=== PATIENT | male | born 1980 | race Hispanic/Latino ===

== ENCOUNTER 2018-09-16 17:21 | Emergency (ER) | payer SELFPAY ==
[2018-09-16] MEDS ORDERED: HYDROCODONE/APAP 7.5/325 MG TAB ONE (18:08)
--- NOTE | 2018-09-16 18:35 | RAD REPORT ---
EXAM DESCRIPTION: RAD - Ankle Right 3 View - 09/16/2018 6:28 pm CLINICAL HISTORY: PAIN Fall, ankle pain COMPARISON: No comparisons FINDINGS: Spiral fracture is seen involving the distal tibial metaphysis. Oblique fracture of the di stal fibula also present. Moderate soft tissue swelling is evident.
--- NOTE | 2018-09-16 19:26 | ER ---
Nurse's Notes [facility] Name: Curtis Singh Age: 37 yrs Sex: Male : 1980 Arrival Date: 09/16/2018 Time: 17:27 Bed 30 Private MD: None, None Diagnosis: Oblique fracture of shaft of tibia-distal;Nondisplaced fracture of lateral malleolus of right fibula Presentation: 09/16 17:42 Presenting complaint: Patient states: "I stepped wrong and fell yesterday and hurt my aa5 right foot". Pt c/o right foot and right ankle pain. Transition of care: patient was not received from another setting of care. Onset of symptoms was August 2018. Risk Assessment: Do you want to hurt yourself or someone else? Patient reports no desire to harm self or others. Initial Sepsis Screen: Does the patient meet any 2 criteria? No. Patient's initial sepsis screen is negative. Does the patient have a suspected source of infection? No. Patient's initial sepsis screen is negative. Care prior to arrival: None. 17:42 Method Of Arrival: Wheelchair aa5 17:42 Acuity: SHARONA 4 aa5 Historical: - Allergies: 17:43 No Known Allergies; aa5 - PMHx: 17:43 None; aa5 - PSHx: 17:43 None; aa5 - Immunization history:: Flu vaccine is not up to date. - Social history:: Smoking status: Patient/guardian denies using tobacco. - Ebola Screening: : No symptoms or risks identified at this time. Screenin:59 Abuse screen: Denies threats or abuse. Denies injuries from another. Nutritional rv screening: No deficits noted. Tuberculosis screening: No symptoms or risk factors identified. Fall Risk None identified. Assessment: 17:59 General: Appears in no apparent distress. uncomfortable, Behavior is calm, cooperative. rv Pain: Complains of pain in right foot. Neuro: Level of Consciousness is awake, alert, obeys commands, Oriented to person, place, time, situation. Cardiovascular: Capillary refill < 3 seconds. Respiratory: Airway is patent. GI: No signs and/or symptoms were reported involving the gastrointestinal system. GI: No signs and/or symptoms were reported involving the gastrointestinal system. : No signs and/or symptoms were reported regarding the genitourinary system. EENT: No signs and/or symptoms were reported regarding the EENT system. Derm: Bruising that is dark purple. Musculoskeletal: Swelling present in right foot. 19:45 Reassessment: patient complained of feeling weak and ill after the shot of Fentanyl. rv referred to Danisha EDWARDS. Vital Signs: 17:43 BP 137 / 94; Pulse 100; Resp 16 S; Temp 99.0(TE); Pulse Ox 99% on R/A; Weight 88.45 kg aa5 (R); Height 5 ft. 10 in. (177.80 cm) (R); Pain 10/10; 20:00 BP 161 / 94; Pulse 110; Resp 21; Pulse Ox 98% on R/A; rv 20:15 BP 136 / 90; Pulse 94; Resp 19; Pulse Ox 96% on R/A; rv 20:30 BP 143 / 89; Pulse 81; Resp 18; Pulse Ox 96% on R/A; rv 21:47 BP 148 / 97; Pulse 83; Resp 15 S; Pulse Ox 100% on R/A; rv 17:43 Body Mass Index 27.98 (88.45 kg, 177.80 cm) aa5 ED Course: 17:27 Patient arrived in ED. mr 17:27 None, None is Private Physician. mr 17:42 Triage completed. aa5 17:42 Arm band placed on. aa5 17:48 [facility] Friend F[facility]-C is [facility]. snw 17:48 Ervin Haji MD is Attending Physician. snw 18:00 Patient has correct armband on for positive identification. Bed in low position. Call rv light in reach. Side rails up X 1. Pulse ox on. NIBP on. 18:29 Ankle Right 3 View XRAY In Process Unspecified. EDMS 19:19 Orthoglass splint: Posterior long leg splint applied on right leg. stirrup splint lt1 applied on right leg. 19:23 Mane Che MD is Referral Physician. snw 20:00 Inserted saline lock: 20 gauge in right antecubital area, using aseptic technique. rv 21:47 No provider procedures requiring assistance completed. IV discontinued, bleeding rv controlled, No redness/swelling at site. Pressure dressing applied. Administered Medications: 17:58 Drug: [place] (7.5 mg-325 mg) 1 tabs Route: PO; rv 19:45 Follow up: Response: No adverse reaction; Pain is decreased rv 19:20 Drug: fentaNYL (PF) 50 mcg Route: IM; Site: right deltoid; rv 19:45 Follow up: Response: Pain is decreased rv 19:30 Drug: Zofran 4 mg Route: PO; rv 20:23 Follow up: Response: Nausea unchanged rv 20:00 Drug: NS 0.9% 1000 ml Route: IV; Rate: 1 bolus; Site: right antecubital; rv 20:00 Drug: Zofran 4 mg Route: IVP; Site: right antecubital; rv 20:38 Follow up: Response: Nausea is decreased rv Outcome: 19:25 Discharge ordered by . snw 21:47 Discharged to home via wheelchair, with crutches. rv 21:47 Condition: good 21:47 Discharge instructions given to patient, family, Instructed on discharge instructions, follow up and referral plans. medication usage, Demonstrated understanding of instructions, follow-up care, medications, Prescriptions given X 2. 21:48 Patient left the ED. rv Signatures: Dispatcher [employer] EDMS Danisha Friend, HR ANALYST-C HR ANALYST-Csnw ShawEmilee mr Ortiz, Shelly, RN RN aa5 Julio César Choudhury RN RN Ada Kennedy 1
[2018-09-16] MEDS ORDERED: FENTANYL CITR 100 MCG/2 ML ONE (19:27)
--- NOTE | 2018-09-16 19:27 | EDPHYS ---
Physician Documentation [facility] Name: Curtis Singh Age: 37 yrs Sex: Male : 1980 Arrival Date: 09/16/2018 Time: 17:27 Bed 30 Private MD: None, None ED Physician Ervin Haji HPI: 09/16 18:07 This 37 yrs old Male presents to ER via Wheelchair with complaints of Foot snw Injury. 18:07 The patient presents with decreased range of motion, an injury, pain, that is acute. snw The complaints affect the right ankle. Context: The problem was sustained at home, resulted from a mis-step, twisting of the extremity, the patient is not able to ambulate, Problem is a result from a previous injury: No. Onset: The symptoms/episode began/occurred suddenly, last night. Associated signs and symptoms: Pertinent positives: swelling. Severity of symptoms: At their worst the symptoms were moderate. The patient has not experienced similar symptoms in the past. The patient has not recently seen a physician. Historical: - Allergies: 17:43 No Known Allergies; aa5 - PMHx: 17:43 None; aa5 - PSHx: 17:43 None; aa5 - Immunization history:: Flu vaccine is not up to date. - Social history:: Smoking status: Patient/guardian denies using tobacco. - Ebola Screening: : No symptoms or risks identified at this time. ROS: 18:06 Constitutional: Negative for fever, chills, and weight loss, Eyes: Negative for injury, snw pain, redness, and discharge, ENT: Negative for injury, pain, and discharge, Neck: Negative for injury, pain, and swelling, Cardiovascular: Negative for chest pain, palpitations, and edema, Respiratory: Negative for shortness of breath, cough, wheezing, and pleuritic chest pain, Abdomen/GI: Negative for abdominal pain, nausea, vomiting, diarrhea, and constipation, Back: Negative for injury and pain, : Negative for injury, bleeding, discharge, and swelling, Skin: Negative for injury, rash, and discoloration, Neuro: Negative for headache, weakness, numbness, tingling, and seizure. 18:06 MS/extremity: Positive for decreased range of motion, pain, swelling, of the right ankle. Exam: 18:05 Constitutional: This is a well developed, well nourished patient who is awake, alert, snw and in no acute distress. Head/Face: Normocephalic, atraumatic. Eyes: Pupils equal round and reactive to light, extra-ocular motions intact. Lids and lashes normal. Conjunctiva and sclera are non-icteric and not injected. Cornea within normal limits. Periorbital areas with no swelling, redness, or edema. ENT: Nares patent. No nasal discharge, no septal abnormalities noted. Tympanic membranes are normal and external auditory canals are clear. Oropharynx with no redness, swelling, or masses, exudates, or evidence of obstruction, uvula midline. Mucous membranes moist. Neck: Trachea midline, no thyromegaly or masses palpated, and no cervical lymphadenopathy. Supple, full range of motion without nuchal rigidity, or vertebral point tenderness. No Meningismus. Chest/axilla: Normal chest wall appearance and motion. Nontender with no deformity. No lesions are appreciated. Cardiovascular: Regular rate and rhythm with a normal S1 and S2. No gallops, murmurs, or rubs. Normal PMI, no JVD. No pulse deficits. Respiratory: Lungs have equal breath sounds bilaterally, clear to auscultation and percussion. No rales, rhonchi or wheezes noted. No increased work of breathing, no retractions or nasal flaring. Abdomen/GI: Soft, non-tender, with normal bowel sounds. No distension or tympany. No guarding or rebound. No evidence of tenderness throughout. Back: No spinal tenderness. No costovertebral tenderness. Full range of motion. Skin: Warm, dry with normal turgor. Normal color with no rashes, no lesions, and no evidence of cellulitis. Neuro: Awake and alert, GCS 15, oriented to person, place, time, and situation. Cranial nerves II-XII grossly intact. Motor strength 5/5 in all extremities. Sensory grossly intact. Cerebellar exam normal. Normal gait. Psych: Awake, alert, with orientation to person, place and time. Behavior, mood, and affect are within normal limits. 18:05 Musculoskeletal/extremity: Extremities: grossly normal except: noted in the right ankle: decreased ROM, swelling, tenderness, ROM: limited active range of motion due to pain, in the right ankle, Circulation is intact in all extremities. Sensation intact. Compartment Syndrome exam of affected extremity: is normal. Vital Signs: 17:43 BP 137 / 94; Pulse 100; Resp 16 S; Temp 99.0(TE); Pulse Ox 99% on R/A; Weight 88.45 kg aa5 (R); Height 5 ft. 10 in. (177.80 cm) (R); Pain 10/10; 20:00 BP 161 / 94; Pulse 110; Resp 21; Pulse Ox 98% on R/A; rv 20:15 BP 136 / 90; Pulse 94; Resp 19; Pulse Ox 96% on R/A; rv 20:30 BP 143 / 89; Pulse 81; Resp 18; Pulse Ox 96% on R/A; rv 21:47 BP 148 / 97; Pulse 83; Resp 15 S; Pulse Ox 100% on R/A; rv 17:43 Body Mass Index 27.98 (88.45 kg, 177.80 cm) aa5 MDM: 17:49 Patient medically screened. snw 19:27 Data reviewed: vital signs, nurses notes. Data interpreted: Pulse oximetry: on room air snw is 99 %. Interpretation: normal. Counseling: I had a detailed discussion with the patient and/or guardian regarding: the historical points, exam findings, and any diagnostic results supporting the discharge/admit diagnosis, the presence of at least one elevated blood pressure reading (>120/80) during this emergency department visit, radiology results, the need for outpatient follow up, to return to the emergency department if symptoms worsen or persist or if there are any questions or concerns that arise at home. Special discussion: I have referred the patient to see his PCP for further evaluation of high blood pressure. Based on the history and exam findings, there is no indication for further emergent testing or inpatient evaluation. I discussed with the patient/guardian the need to see the psychiatry teacher for further evaluation of the symptoms. 09/16 17:49 Order name: Ankle Right 3 View XRAY; Complete Time: 18:38 snw 09/16 17:55 Order name: Crutches; Complete Time: 20:52 snw 09/16 18:45 Order name: Posterior Leg Splint: long leg with stirrup; Complete Time: 20:52 snw 09/16 19:39 Order name: PO challenge: juice; Complete Time: 20:22 snw 09/16 20:23 Order name: IV Saline Lock; Complete Time: 20:23 rv Administered Medications: 17:58 Drug: [place] (7.5 mg-325 mg) 1 tabs Route: PO; rv 19:45 Follow up: Response: No adverse reaction; Pain is decreased rv 19:20 Drug: fentaNYL (PF) 50 mcg Route: IM; Site: right deltoid; rv 19:45 Follow up: Response: Pain is decreased rv 19:30 Drug: Zofran 4 mg Route: PO; rv 20:23 Follow up: Response: Nausea unchanged rv 20:00 Drug: NS 0.9% 1000 ml Route: IV; Rate: 1 bolus; Site: right antecubital; rv 20:00 Drug: Zofran 4 mg Route: IVP; Site: right antecubital; rv 20:38 Follow up: Response: Nausea is decreased rv Disposition: 09/17 07:10 Co-signature as Attending Physician, Ervin Haji MD I agree with the assessment and lucita plan of care. Disposition: 09/16/18 19:25 Discharged to Home. Impression: Oblique fracture of shaft of tibia - distal, Nondisplaced fracture of lateral malleolus of right fibula. - Condition is Stable. - Discharge Instructions: Cast or Splint Care, Adult, Tibial and Fibular Fracture, Adult, Cryotherapy. - Prescriptions for Tylenol- Codeine #3 300-30 mg Oral Tablet - take 2 tablets by ORAL route every 6 hours As needed; 16 tablet. Diclofenac Sodium 75 mg Oral Tablet Sustained Release - take 1 tablet by ORAL route 2 times per day; 30 tablet. - Work release form, Medication Reconciliation Form, Thank You Letter, Antibiotic Education, Prescription Opioid Use form. - Follow up: Private Physician; When: 1 - 2 days; Reason: Recheck today's complaints, Continuance of care, Re-evaluation by your physician. Follow up: Emergency Department; When: As needed; Reason: Worsening of condition. Follow up: Mane Che MD; When: 1 - 2 days; Reason: Recheck today's complaints, Continuance of care. Signatures: Dispatcher [employer] Ervin Rdz MD MD cha Therrien, Shelly, HOT MILL OBSERVER-C H[employer] MILL OBSERVER-Shellyw Shelly Ortiz RN RN aa5 Kei, Julio César, RN RN rv Corrections: (The following items were deleted from the chart) 09/16 18:45 17:55 Splint - Ankle: Orthoglass: Posterior ordered. andres campos 21:48 19:25 09/16/2018 19:25 Discharged to Home. Impression: Oblique fracture of shaft of rv tibia - distal; Nondisplaced fracture of lateral malleolus of right fibula. Condition is Stable. Forms are Medication Reconciliation Form, Thank You Letter, Antibiotic Education, Prescription Opioid Use. Follow up: Private Physician; When: 1 - 2 days; Reason: Recheck today's complaints, Continuance of care, Re-evaluation by your physician. Follow up: Emergency Department; When: As needed; Reason: Worsening of condition. Follow up: Mane Che; When: 1 - 2 days; Reason: Recheck today's complaints, Continuance of care. andres
[2018-09-16] MEDS ORDERED: ONDANSETRON 4 MG (ODT) TAB ONE (19:49)
[2018-09-16] MEDS ORDERED: NA CHLORIDE 0.9% 1,000 ML ONE (20:19)
[2018-09-16] MEDS ORDERED: ONDANSETRON 4 MG/2 ML VIAL ONE (20:20)
[2018-09-16] MEDS ORDERED: KETOROLAC 30 MG/ML INJ ONE (21:38)
== END 2018-09-16 21:48 | disposition home or self-care (01) ==
LOC: ER 17:21
DX: S82.231A Displaced oblique fracture of shaft of right tibia, initial encounter for closed fracture (principal); S82.64XA Nondisplaced fracture of lateral malleolus of right fibula, initial encounter for closed fracture; X50.1XXA Overexertion from prolonged static or awkward postures, initial encounter
CPT/HCPCS: 96372; 96374; 99284; J2405; J3010; J7030